=== PATIENT | female | born 1980 | race Caucasian/White ===

== ENCOUNTER 2019-03-24 22:17 | Inpatient (IN) ==
[2019-03-24] MEDS ORDERED: ASPIRIN PO ONE (22:51)
[2019-03-24] MEDS ORDERED: NITROGLYCERIN TOP ONE (22:52)
--- NOTE | 2019-03-24 23:19 | PROVIDER DOCUMENTATION ---
HPI-Chest Pain - General Chief Complaint: Chest Pain Stated Complaint: CHEST PAINS Time Seen by Provider: 03/24/19 22:21 Source: patient Allergies/Adverse Reactions: Patient Allergies Allergy/AdvReac Type Severity Reaction Status Date / Time Sulfa (Sulfonamide AdvReac NAUSEA Verified 03/24/19 22:26 Antibiotics) Home Medications: Home Medication List Medication Instructions Recorded Confirmed Last Taken Type Albuterol Sulfate Inhaler 2 inh INHALATION Q4H PRN #1 inhaler 12/21/18 03/24/19 Unknown Rx [Ventolin Hfa] Hydrochlorothiazide 25 mg PO DAILY 12/21/18 03/24/19 03/24/19 History Levothyroxine [Synthroid] 1 tab PO QAM 03/24/19 03/24/19 03/24/19 History - History of Present Illness-CP Nature of Presenting Problem: Patient is a 38 yowf who complains of mid sternal chest pain described as "st abbing" that radiates to jaw and back since 2129 tonight. Onset while sitting watching tv. Denies SOB, n/v, diaphoresis, or any other complaints. Pt is non- toxic in appearance. Review of Systems - Adult - REVIEW OF SYSTEMS - ADULT Constitutional: reports: no symptoms reported Eyes: reports: no symptoms reported Ears, Nose, Mouth & Throat: reports: no symptoms reported Cardiovascular: reports: see HPI Respiratory: reports: no symptoms reported Gastrointestinal: reports: no symptoms reported Genitourinary: reports: no symptoms reported Musculoskeletal: reports: no symptoms reported Integumentary: reports: no symptoms reported Neurological: reports: no symptoms reported Psychiatric: reports: no symptoms reported Endocrine: reports: no symptoms reported Hematologic/Lymphatic: reports: no symptoms reported Allergic/Immunologic: reports: no symptoms reported All Other Systems: Reviewed and Negative Past History - Adult - PAST MEDICAL HISTORY-ADULT Review of Records: reports: Nursing Assessment Review, Medications Reviewed, Social history reviewed & non-contributory. Major Childhood Illnesses: reports: denies history Cardiovascular: reports: HTN, hyperlipidemia Respiratory: reports: denies history Gastrointestinal: reports: diverticulosis, GERD Obstetrical/Gynecological: reports: denies history Genitourinary: reports: denies history Musculoskeletal: reports: denies history Neurological: reports: headaches/migraines Psychiatric: reports: anxiety Endocrine/Immune: reports: thyroid disorder Other Conditions: reports: denies history - PRIOR SURGERIES/PROCEDURES Surgical/Procedure History: reports: reviewed, not pertinent, cholecystectomy, - IMMUNIZATION STATUS Childhood Immunizations: See Nurse Assessment Flu Vaccine: See Nurse Assessment - FAMILY HISTORY Family History: reviewed, not pertinent - SOCIAL HISTORY Smoking: cigarettes, greater than 1 pack/day Physical Exam-General - PHYSICAL EXAM-ADULT Initial Vital Signs Reviewed: Yes - CONSTITUTIONAL General Appearance: alert, no apparent distress. negative: lethargic, slow to respond - EYES Eyes: PERRL/EOMI - HEAD, EARS, NOSE, MOUTH & THROAT HENMT: normocephalic/atraumatic - NECK Neck: full range of motion, supple, normal inspection - RESPIRATORY Respiratory: chest non-tender, lungs clear, normal breath sounds, no respiratory distress, no accessory muscle use - CARDIOVASCULAR Cardiovascular: normal peripheral pulses, regular rate, rhythm, no edema, no gallop, no JVD, no murmur - GASTROINTESTINAL (ABDOMEN) Abdominal Exam: normal bowel sounds, non tender, soft - MUSCULOSKELETAL Back Exam: normal inspection Extremity: normal range of motion, non-tender, normal gait, normal inspection - SKIN Integumentary: normal color, warm/dry. negative: cyanosis, diaphoresis, jaundice, mottled, pallor - NEUROLOGIC Neurologic: grossly normal, no motor/sensory deficits - PSYCHIATRIC Psych/Mental Status: normal mood/affect, normal thought content, normal thought process, oriented x 3 - HEART Score HEART Score: History: Highly Suspicious HEART Score: ECG: Non-Specific Repolarization Disturbance/LBBB/PM HEART Score: Age: < or = 45 Years HEART Score: Risk Factors for Atherosclerotic Disease: > or = 3 Risk Factors or History of Atherosclerotic Disease Progress - PLAN OF CARE/RESULTS Progress/Plan/Lab Results: Vital Signs - 8 hr 03/24/19 22:21 Temperature 97.7 F Pulse Rate 100 H Respiratory Rate 20 Blood Pressure 137/94 O2 Sat by Pulse Oximetry 93 L Bedside Urine ED: Urine Bedside Start: 03/24/19 22:52 Freq: ORDERED Status: Active Protocol: Activity Type Activity Date Activity User E-Sign Co-Sign Detail Recorded Client Recorded Date Recorded By Document 03/24/19 23:12 [id number] 03/24/19 23:13 [id number] 03/24/19 23:12 Point of Care [Bedside Point of Care] -Lot # [id number] - Results Negative -Control Line Visible? Yes Laboratory Results - last 24 hr 03/24/19 03/24/19 03/24/19 23:41 23:41 23:41 WBC 12.42 H RBC 4.39 Hgb 13.8 Hct 41.3 MCV 94.1 MCH 31.4 H MCHC 33.4 RDW Std Deviation 13.4 Plt Count 327 MPV 10.3 Immature Gran % (Auto) 1.0 H Neut % (Auto) 66.0 Lymph % (Auto) 25.3 [place] % (Auto) 5.2 Eos % (Auto) 2.1 Baso % (Auto) 0.4 Immature Gran # (Auto) 0.13 H Neut # (Auto) 8.19 H Lymph # (Auto) 3.14 [place] # (Auto) 0.65 H Eos # (Auto) 0.26 Baso # (Auto) 0.05 PT 12.6 INR 0.90 PTT (Actin FS) 30.5 Sodium 137 Potassium 3.4 L Chloride 94 L Carbon Dioxide 28 Anion Gap 15 BUN 11 Creatinine 1.0 H Estimated GFR/1.73 m2 > 60 BUN/Creatinine Ratio 11 Glucose 160 H Calculated Osmolality 277 Calcium 9.9 Magnesium 1.7 Total Bilirubin 0.20 AST 29 ALT 48 H Alkaline Phosphatase 66 Troponin T High Sens Total Protein 7.5 Albumin 4.5 Globulin 3.0 Albumin/Globulin Ratio 2.0 03/24/19 23:41 WBC RBC Hgb Hct MCV MCH MCHC RDW Std Deviation Plt Count MPV Immature Gran % (Auto) Neut % (Auto) Lymph % (Auto) [place] % (Auto) Eos % (Auto) Baso % (Auto) Immature Gran # (Auto) Neut # (Auto) Lymph # (Auto) [place] # (Auto) Eos # (Auto) Baso # (Auto) PT INR PTT (Actin FS) Sodium Potassium Chloride Carbon Dioxide Anion Gap BUN Creatinine Estimated GFR/1.73 m2 BUN/Creatinine Ratio Glucose Calculated Osmolality Calcium Magnesium Total Bilirubin AST ALT Alkaline Phosphatase Troponin T High Sens < 6 Total Protein Albumin Globulin Albumin/Globulin Ratio Orders Category Date Time Status Cardiac Monitoring DIRECTED Care 03/24/19 22:51 Active ED: Urine Bedside ORDERED Care 03/24/19 22:52 Active Saline Loc NOW Care 03/24/19 22:51 Active CHEST-2 VIEWS [RAD] Stat Exams 03/24/19 22:51 Taken CBC WITH DIFF [HEME] Stat Lab 03/24/19 23:41 Completed COMPREHENSIVE METABOLIC PANEL [CHEM] Stat Lab 03/24/19 23:41 Completed MAGNESIUM [CHEM] Stat Lab 03/24/19 23:41 Completed PROTIME WITH INR [COAG] Stat Lab 03/24/19 23:41 Completed PTT [COAG] Stat Lab 03/24/19 23:41 Completed TROPONIN T HIGH SENSITIVITY Stat Lab 03/24/19 23:41 Completed Aspirin Med 03/24/19 22:51 Discontinued 325 mg PO NOW ONE Nitroglycerin Med 03/24/19 22:52 Discontinued 0.5 inch TOP NOW ONE Result Diagrams: 03/24/19 23:41 03/24/19 23:41 - REASSESSMENT Reassessment #1 Time Reassessed: 00:45 Status: improving (Pt states cp improved with nitro. Discussed plan to admit- pt in agreement. Dr. Stark paged.) - EKG 1 Time of EKG reading by physician:: 20:37 EKG Read and Signed by:: Luis Carlos Mendez EKG Interpretation (*Must complete 3 of following elements*): Abnormal Rate: 95 Rhythm: NSR QRS: normal ST Wave: normal Prior EKG Comparison: changes noted (flattened t waves as compared to prior) - XRAY 1 XRAY Study: Chest (Lungs are normally expanded and clear. No acute process. Over read by Dr. Mendez.) - CONSULTS/PCP/HOSPITALIST Notification #1 *Consult/PCP/Hospitalist*: Dr. Stark Time Discussed: 00:46 Reason/Comments: admission- cp Consult Disposition: Admit Departure - Departure Date of Disposition Decision: 03/25/19 Time of Disposition Decision: 00:46 DIAGNOSIS: Chest pain Qualifiers: Chest pain type: unspecified Qualified Code(s): R07.9 - Chest pain, unspecified Disposition: ADMITTED INPATIENT 09 Certified Medical Emergency: Emergent Condition: Stable Referrals and Follow-Ups: None,PCP [Primary Care Provider] - - Critical Care Note This patient required my direct & personal management of CC.: No Attestation - Physician/ ROC Attestation Patient care was provided by Advanced Practice Provider:: Yes Advanced Practice Provider:: Yaakov Middleton Advanced Practice Provider documentation review:: The Mid-level provider documentation, treatment plan and medical decision making was reviewed by the physician who agrees with all treatment and medical decision making by the MLP. The physician spent face to face time with patient:: No Advanced Practice Provider documentation review:: Supervising physician onsite and consulted in the evaluation and care of this patient. The physician did not have a face to face encounter with the patient.
[2019-03-24 23:54] LABS: BASO# 0.05 X1000 (0.0-0.2); BASO% 0.4 % (0.0-0.8); EOS# 0.26 X1000 (0.0-0.7); EOS% 2.1 % (0.0-10.0); HEMATOCRIT 41.3 % (37.0-47.0); HEMOGLOBIN 13.8 g/dL (12.0-16.0); IMM GRAN# 0.13 X1000 (0.0-0.04); LYMPH# 3.14 X1000 (1.2-3.4); LYMPH% 25.3 % (20.5-51.1); MCH 31.4 PG (27-31); MCHC 33.4 g/dL (33-37); MCV 94.1 FL (81-99); MONO# 0.65 X1000 (0.11-0.59); MONO% 5.2 % (1.7-9.3); MPV 10.3 FL (7.4-10.4); NEUT# 8.19 X1000 (1.4-6.5); PLT 327 X1000 (130-400); RBC 4.39 XMIL (4.2-5.4); RDW 13.4 % (11.5-14.5); WBC 12.42 X1000 (4.8-10.8)
[2019-03-25 00:05] LABS: INR 0.9; PROTIME 12.6 Seconds (11.0-16.0)
[2019-03-25 00:06] LABS: PTT 30.5 Seconds (22.3-41.8)
[2019-03-25 00:19] LABS: AGAP 15; ALBUMIN 4.5 g/dL (3.5-5.0); ALKALINE PHOSPHATASE 66 U/L (32-104); BUN 11 mg/dL (8-22); CALCIUM 9.9 mg/dL (8.8-10.2); CHLORIDE 94 mmol/L (98-107); COSMO 277; ESTIMATED GFR > 60; GLUCOSE 160 mg/dL (70-104); GOT 29 U/L (10-30); GPT 48 U/L (10-36); MAGNESIUM 1.7 mg/dL (1.5-2.7); POTASSIUM 3.4 mmol/L (3.5-5.1); SODIUM 137 mmol/L (136-145); TCO2 28 mmol/L (25-35); TOTAL PROTEIN 7.5 g/dL (6.3-8.3)
[2019-03-25] MEDS ORDERED: MORPHINE IV PRN (00:47)
[2019-03-25] MEDS ORDERED: ZOFRAN IV PRN (00:47)
--- NOTE | 2019-03-25 02:59 | EKG Report ---
Test Performed on : 03/24/2019 10:31:22 PM Test Reason : CP Blood Pressure : / mmHG Vent. Rate : 095 BPM Atrial Rate : 095 BPM P-R Int : 164 ms QRS Dur : 094 ms QT Int : 372 ms P-R-T Axes : 032 -04 019 degrees QTc Int : 467 ms Normal sinus rhythm. Biatrial enlargement Cannot rule out Anterior infarct (cited on or before 21-DEC-2018) Abnormal ECG When compared with ECG of 21-DEC-2018 19:56, No significant change was found Unconfirmed Result
--- NOTE | 2019-03-25 05:38 | Diag Imaging Result Doc PS360 ---
EXAM: CHEST-2 VIEWS HISTORY: cp TECHNIQUE: Two views COMPARISON: 12/21/2018 FINDINGS: The lungs are well expanded. The heart is not enlarged. The vessels are not distended. There are no infiltrates. No pleural effusions. IMPRESSION: No acute abnormality. Electronically signed by Benton Flores 03/25/2019 5:35 AM
[2019-03-25] MEDS ORDERED: LEXISCAN ONE (10:00)
--- NOTE | 2019-03-25 14:20 | Diag Imaging Result Document ---
PROCEDURE NAME: MYOCARDIAL PERF SCAN, STR/REST - 03/25/2019 INDICATIONS: Chest pain. PROCEDURES PERFORMED: 1. Lexiscan stress. 2. One day stress rest myocardial perfusion imaging. (rest dose 15.3 mCi of technetium-99m, stress dose 45.9 mCi of technetium-99m sestamibi). FINDINGS: LEXISCAN STRESS RESULTS: 1. Baseline EKG shows sinus rhythm. 2. Lexiscan stress does not demonstrate any clear evidence of ischemic related EKG changes or significant arrhythmias. PERFUSION IMAGING RESULTS: 1. No evidence of transient ischemic dilatation. 2. No evidence of abnormal extracardiac uptake. There is a significant amount of breast shadow associated with this study. 3. Perfusion imaging demonstrates no evidence of ischemic defects. There is some fixed defects in the anterior wall with preserved wall motion suggesting breast soft tissue attenuation. 4. Normal ejection fraction 81%. End-diastolic volume is 96, and systolic volume of 18. Normal wall motion. cc: MD Liam Keita MD
--- NOTE | 2019-03-25 16:07 | ECHO REPORT ---
ORDER DATE: 03/25/2019 INDICATION: Chest pain. FINDINGS: 1. The right atrium appears normal size at 2.6 cm. 2. Trace tricuspid regurgitation. Insufficient data to estimate RV systolic pressure. 3. Normal RV size and systolic function. 4. Trace pulmonic insufficiency. 5. Normal left atrial size with a dimension of 3.7 cm. 6. No mitral prolapse. Trace mitral regurgitation. No mitral stenosis. 7. Normal LV size, end-diastolic dimension of 4.4 cm. Normal wall thicknesses with a posterior and interventricular septal wall thickness 1.1 cm each. Normal LV systolic function with an estimated EF of 60% to 65% with normal wall motion. 8. Aortic valve opens well. No evidence of stenosis or insufficiency. 9. Aorta appears normal in visualized segments. 10. No pericardial effusion seen. cc: MD Liam Keita MD
--- NOTE | 2019-03-25 19:56 | HISTORY AND PHYSICAL ---
CHIEF COMPLAINT: Chest pain. HISTORY OF PRESENT ILLNESS: This is a 38-year-old female who complains of midsternal chest pain. She describes this stabbing type pain. It radiates to her jaw and straight through to her back. It started about an hour prior to coming to the emergency room. She stated she was sitting and watching TV. She had no other accompanying symptoms. She could not identify any exacerbating or alleviating symptoms. She denied any prior episodes. PAST MEDICAL HISTORY: Asthma, gastroesophageal reflux disease, hypertension, thyroid disease, acquired hydrocephalus, a pseudo brain tumor, diverticulitis. PAST SURGICAL HISTORY: Cholecystectomy, and thyroidectomy. SOCIAL HISTORY: She smokes about a pack a day. Denies alcohol or illicit drug use. ALLERGIES: Sulfa which causes nausea. HOME MEDICATIONS: Ventolin inhaler, Nexium, hydrochlorothiazide, and levothyroxine. REVIEW OF SYSTEMS: Discussed with patient with pertinent positives stated in the HPI. She denied any syncope or dizziness, any palpitations, any shortness of breath, cough, fever, chills, any recent weight loss or weight gain, nausea, vomiting, diarrhea, constipation, black or bloody vomitus or stools, hematuria, dysuria, frequency, urgency. PHYSICAL EXAMINATION: GENERAL: This is a 38-year-old female who is sitting up in the chair in no distress. VITAL SIGNS: Blood pressure is 117/75 with heart rate of 60, respirations are 18, temperature is 98 degrees with room air saturations 97%. HEENT: Pupils equal, round, react to light. EOMs are intact sclerae anicteric. Head is normocephalic, atraumatic. Mucous membranes are moist. She has no lower extremity edema. Calves are nontender. PULMONARY: Breath sounds are clear. No increased work of breathing noted. Chest rises and falls symmetric respiration. GASTROINTESTINAL: Abdomen is soft, nontender, nondistended with bowel sounds in all 4 quadrants. NEUROLOGIC: She is alert, oriented x3. SKIN: Warm and dry. LABS: WBC is 12.4 with hemoglobin 13.8, hematocrit 41.3 and platelets 327,000. Sodium 137, potassium 3.4, BUN 11, creatinine 1 with a glucose of 160. Troponins are negative on multiple occasions. Chest x-ray reveals no acute abnormality. Lungs are well expanded. Heart is not enlarged. Vessels are not distended. There are no infiltrates. EKG sinus rhythm at a rate of 95. ASSESSMENT AND PLAN: 1. Chest pain. 2. Gastroesophageal reflux disease. 3. Hypertension. 4. Hypothyroid. PLAN: The patient has been admitted to the medical-surgical floor, placed on telemetry which will continue. She is n.p.o. at present, waiting on a Lexiscan. We will identify home medications and continue these as appropriate. Will order myocardial perfusion scan and echocardiogram have been ordered. Patient was evaluated and plan was discussed with Dr. Stark. Further treatments pending hospital course. Dictated by FLOR Maddox for Liam Stark MD cc: FLOR Maddox MD
--- NOTE | 2019-03-26 00:07 | PROGRESS NOTE ---
DATE: 03/25/2019 ADDENDUM: Patient seen and examined by myself. Full note dictated and discussed with nurse practitioner. Patient presented to the hospital with midsternal chest pain, having shortness of breath. He has a history of hypertension, hyperlipidemia, reflux, chronic anxiety, thyroid problems and migraine. PHYSICAL EXAMINATION: General: On exam, he is awake, alert, oriented. Cardiovascular: Regular rate. Chest: Clear and nonlabored. PLAN: We are going to admit the patient to the hospital, encourage stop smoking and we will follow. cc: Liam Stark MD
[2019-03-26 04:57] VITALS: BP 115/61
--- NOTE | 2019-03-27 07:56 | DISCHARGE SUMMARY ---
ADMISSION DATE: 03/24/2019 DISCHARGE DATE: 03/26/2019 DISCHARGE DIAGNOSES: 1. Chest pain, resolved. 2. Reflux. 3. Hypertension. 4. Hypothyroidism. CONSULTATIONS: None. PROCEDURES: Cardiolite GXT, negative. BRIEF HOSPITAL COURSE: The patient is a very pleasant, 38-year-old female, who presented to the hospital with chest pain that was relieved by nitroglycerin. Therefore, she was admitted, ruled out for MT. Thankfully, enzymes remained negative. She did have a stress test that also was negative. The patient will be discharged home. DISPOSITION: The patient will be discharged home on Nexium and Carafate as needed. Discussed with the patient that she needs to observe reflux precautions, i.e., nothing to eat or drink for 2 hours, eat smaller, more frequent meals, decrease fried, fatty foods, etc. She will follow up outpatient with treatment facility of choice. TIME SPENT: Greater than 30 minutes were spent in total care. cc: Liam Stark MD
== END 2019-03-26 10:30 | disposition home or self-care (01) | DRG 392 ==
LOC: P.ED 22:17 → P.MEDSURG 03-25 03:12
PROVIDERS: ATTEND Family Medicine